=== PATIENT | female | born 1990 | race Caucasian/White ===

== ENCOUNTER 2018-04-20 10:23 | Day surgery (SDC) | payer OTHER ==
[2018-04-20 11:09] VITALS: O2SAT 100
[2018-04-20] MEDS ORDERED: Lactated Ringer's 1,000 ML IV ONE ×2 (11:57)
[2018-04-20] MEDS ORDERED: Midazolam 2 MG/2 ML VIAL ONE (12:05)
[2018-04-20] MEDS ORDERED: Propofol 10 mg/ml Inj (20 ML) ONE (12:05)
[2018-04-20 13:09] VITALS: RESP 16; TEMP 97.8
[2018-04-20 13:13] VITALS: BP 104/67; PULSE 88
== END 2018-04-20 13:30 | disposition home or self-care (01) ==
LOC: C.ENDO 10:23
PROVIDERS: ATTEND Internal Medicine Gastroenterology
DX: K62.5 Hemorrhage of anus and rectum (principal); K64.1 Second degree hemorrhoids
CPT/HCPCS: 45378; 84703; J2250; J2704; J7120